=== PATIENT | female | born 1950 | race African-American/Black ===

== ENCOUNTER 2020-10-10 05:39 | Inpatient (IN) ==
[2020-10-06 12:56] LABS: Basophils % 0.5 % (0.0-0.8); Hematocrit 34.5 VOL% (35.7-47.0); Hemoglobin 11.4 GM/DL (12.0-16.0); Immature Granulocytes % 0.2 %; Immature Granulocytes Absolute 0.01 #; Lymphocytes # 1.8 10*3/uL (1.4-4.0); Lymphocytes % 43.1 % (21.3-54.2); Mean Corpuscular Volume 93.8 FL (87-102); Mean Platelet Volume 10.1 FL (9.6-12.0); Monocytes % 9.7 % (1.7-12.7); Neutrophils % 45.5 % (38.7-73.9); Platelet Count 180 T/CUMM (130-400); Red Blood Count 3.68 MC/CUMM (3.8-5.5); Red Cell Distribution Width 12.7 % (9.3-17.3); White Blood Count 4.1 T/CUMM (4-12)
[2020-10-06 13:14] LABS: Calcium 9.6 MG/DL (8.5-10.1)
[2020-10-10] MEDS ORDERED: ERTAPENEM 1,000 MG in SODIUM CHLORIDE 0.9% 100 ML IV ONE (06:00)
[2020-10-10] MEDS ORDERED: ALVIMOPAN 12 MG CAPSULE PO ONE (06:00)
[2020-10-10] MEDS ORDERED: INDOCYANINE GREEN 25 MG VIAL IV ONE (06:26)
[2020-10-10] MEDS ORDERED: TISSUE ADHESIVE 1 EACH APPLICATOR TOP ONE (06:26)
[2020-10-10] MEDS ORDERED: GABAPENTIN 400 MG CAPSULE PO ONE (06:35)
[2020-10-10] MEDS ORDERED: FAMOTIDINE 20 MG TABLET PO ONE (06:35)
[2020-10-10] MEDS ORDERED: ACETAMINOPHEN 500 MG TABLET PO ONE (06:35)
[2020-10-10] MEDS ORDERED: MIDAZOLAM 2 MG/2 ML VIAL ONE (06:37)
[2020-10-10] MEDS ORDERED: SUFentanil 50 MCG/ML AMP ONE (06:37)
[2020-10-10] MEDS ORDERED: ROPIVACAINE 0.5% 30 ML VIAL ONE (06:38)
[2020-10-10] MEDS ORDERED: DEXAMETHASONE 4 MG/1 ML VIAL ONE (06:38)
[2020-10-10] MEDS ORDERED: ROCURONIUM 50 MG/5 ML VIAL IV ONE ×2 (06:46→08:30)
[2020-10-10] MEDS ORDERED: propofoL 200 MG/20 ML VIAL IV ONE (06:46)
[2020-10-10] MEDS ORDERED: SEVOFLURANE 1 UNIT/15 MINUTE INH ONE ×3 (06:46→09:08)
[2020-10-10] MEDS ORDERED: LIDOCAINE 2% 5 ML VIAL ONE (06:46)
[2020-10-10] MEDS ORDERED: LACTATED RINGERS 1,000 ML IV ONE (06:46)
[2020-10-10] MEDS ORDERED: LACTATED RINGERS 1,000 ML IV SCH (07:00)
[2020-10-10] MEDS ORDERED: GLYCOPYRROLATE 0.4 MG/2 ML VIAL ONE ×2 (08:08→09:01)
[2020-10-10] MEDS ORDERED: NEOSTIGMINE 10 MG/10 ML VIAL ONE (09:01)
[2020-10-10] MEDS: LACTATED RINGERS 1,000 ML IV SCH ×2 (09:24→19:28)
[2020-10-10] MEDS ORDERED: METOPROLOL TARTRATE 25 MG TABLET PO SCH (09:31)
[2020-10-10] MEDS ORDERED: ONDANSETRON 4 MG/2 ML VIAL IV PRN ×2 (09:31→09:33)
[2020-10-10] MEDS ORDERED: MEPERIDINE 25 MG/1 ML VIAL IV PRN (09:33)
[2020-10-10] MEDS ORDERED: diphenhydrAMINE 50 MG/1 ML VIAL IV PRN (09:33)
[2020-10-10] MEDS ORDERED: PROMETHAZINE INJ 25 MG in SODIUM CHLORIDE 0.9% 50 ML IV PRN (09:33)
[2020-10-10] MEDS ORDERED: HYDROmorphone 2 MG/1 ML VIAL IV PRN (09:33)
[2020-10-10] MEDS: HYDROmorphone 2 MG/1 ML VIAL IV PRN ×4 (10:00→10:16)
[2020-10-10] MEDS: KETOROLAC 15 MG/1 ML VIAL IV SCH ×2 (10:16→15:54)
[2020-10-10 10:23] LABS: Basophils % 0.2 % (0.0-0.8); Eosinophils % 0.2 % (0.00-10.9); Hematocrit 35.1 VOL% (35.7-47.0); Hemoglobin 11.6 GM/DL (12.0-16.0); Immature Granulocytes % 0.3 %; Immature Granulocytes Absolute 0.04 #; Lymphocytes # 3.6 10*3/uL (1.4-4.0); Lymphocytes % 27.4 % (21.3-54.2); Mean Corpuscular Volume 94.1 FL (87-102); Mean Platelet Volume 9.7 FL (9.6-12.0); Monocytes % 3.5 % (1.7-12.7); Neutrophils % 68.4 % (38.7-73.9); Platelet Count 201 T/CUMM (130-400); Red Blood Count 3.73 MC/CUMM (3.8-5.5); Red Cell Distribution Width 12.8 % (9.3-17.3); White Blood Count 13.2 T/CUMM (4-12)
[2020-10-10 10:48] LABS: Calcium 8.7 MG/DL (8.5-10.1); Osmolality,Calculated 285.3 MOS/KG (273-304); Potassium 2.9 MMOL/L (3.5-5.1)
[2020-10-10] MEDS ORDERED: POTASSIUM CHLORIDE 20 MEQ TABLET PO PRN (14:30)
[2020-10-10] MEDS ORDERED: POTASSIUM CHLORIDE 20 MEQ TABLET PO ONE (14:31)
[2020-10-10] MEDS ORDERED: GLUCAGON 1 MG VIAL IM PRN (14:34)
[2020-10-10] MEDS ORDERED: DEXTROSE 50% 25 GM/50 ML VIAL IV PRN (14:34)
[2020-10-10] MEDS ORDERED: INSULIN REGULAR 100 UNIT/ML SUBCUT SCH (16:30)
[2020-10-10] MEDS ORDERED: NALOXONE 0.4 MG/ML VIAL ONE ×2 (18:04→18:08)
[2020-10-10] MEDS ORDERED: NOREPINEPHRINE 8 MG in SODIUM CHLORIDE 0.9% 242 ML IV PRN (18:11)
[2020-10-10] MEDS ORDERED: ACETAMINOPHEN 325 MG TABLET PO PRN (18:11)
[2020-10-10] MEDS ORDERED: ALBUTEROL 2.5 MG/3 ML NEB RESP TX PRN (18:11)
[2020-10-10] MEDS ORDERED: SUCCINYLCHOLINE 200 MG/10 ML VIAL ONE (18:11)
[2020-10-10] MEDS ORDERED: ETOMIDATE 20 MG/10 ML VIAL IV ONE ×2 (18:12→18:23)
[2020-10-10] MEDS ORDERED: SUCCINYLCHOLINE 200 MG/10 ML VIAL IV ONE (18:14)
[2020-10-10] MEDS ORDERED: MAGNESIUM SULF RIDER 2 GM/50 ML PREMIX IV PRN (18:24)
[2020-10-10] MEDS ORDERED: POTASSIUM CHLORIDE RIDER 10 MEQ/100 ML PREMIX IV PRN (18:24)
[2020-10-10] MEDS ORDERED: MAGNESIUM SULF RIDER 4 GM/100 ML PREMIX IV PRN (18:24)
[2020-10-10] MEDS ORDERED: SODIUM CHLORIDE 0.9% 1,000 ML IV SCH (18:30)
[2020-10-10] MEDS ORDERED: PANTOPRAZOLE 40 MG VIAL IV SCH (18:30)
[2020-10-10 18:36] LABS: Hematocrit 35.7 VOL% (35.7-47.0); Hemoglobin 11.7 GM/DL (12.0-16.0); Immature Granulocytes % 0.4 %; Immature Granulocytes Absolute 0.04 #; Lymphocytes # 0.4 10*3/uL (1.4-4.0); Lymphocytes % 4.7 % (21.3-54.2); Mean Corpuscular HGB Conc 32.8 GM/DL (32-36); Mean Corpuscular Volume 94.2 FL (87-102); Mean Platelet Volume 9.7 FL (9.6-12.0); Monocytes % 7.4 % (1.7-12.7); Neutrophils % 87.5 % (38.7-73.9); Platelet Count 178 T/CUMM (130-400); Red Blood Count 3.79 MC/CUMM (3.8-5.5); Red Cell Distribution Width 12.5 % (9.3-17.3); White Blood Count 9.4 T/CUMM (4-12)
[2020-10-10 18:49] LABS: Partial Thromboplastin Time 21.6 SECS (23.9-33.8)
[2020-10-10 19:01] VITALS: BP 164/86
[2020-10-10] MEDS ORDERED: NALOXONE 0.4 MG/ML VIAL IV ONE (19:05)
[2020-10-10 19:06] LABS: Alanine Aminotransferase 34 U/L (13-56); Albumin 3.5 G/DL (3.4-5.0); Alkaline Phosphatase 67 U/L (45-117); Aspartate Amino Transferase 24 U/L (0-37); Band Neutrophils 1 % (0-10); Bilirubin,Total < 0.39 MG/DL (0.2-1.0); Blood Urea Nitrogen 15 MG/DL (7-18); Carbon Dioxide 23 MMOL/L (21-32); Estimated Glom Filtration Rate 62 ML/MIN; Glucose 230 MG/DL (74-106); Lymphocytes 3 % (20-55); Osmolality,Calculated 284.5 MOS/KG (273-304); Platelet Estimate Adequate; Segmented Neutrophils 89 % (50-85); Sodium 139 MMOL/L (136-145); Total Cells Counted 100; Total Protein 6.9 G/DL (6.4-8.2)
[2020-10-10 19:43] LABS: ABG Base Excess -1.3 MMOL/L (-2.5-2.5); ABG HCO3 23.4 MMOL/L (20-26); ABG PCO2 33.9 MM HG (35-48); ABG PH 7.428 (7.35-7.45); ABG TCO2 19.8 MMOL/L (23-27)
[2020-10-10 20:05] LABS: Bilirubin,Urine Negative (Negative); Blood, Urine Small mg/dL (Negative); Glucose,Urine (UA) >=500 mg/dL (Negative); Ketones,Urine Negative (Negative); Mucus,Urine Occasional /LPF (Occasional); Nitrite,Urine Negative (Negative); Protein,Urine Negative; RBC,Urine 9 /HPF (0-4); Squamous Epithelial Cell,Urine Occasional /HPF (0-10); Urine Appearance CLEAR (Clear); Urine Color Straw (Yellow); Urine Specific Gravity 1.026 (1.001-1.035); Urine Urobilinogen < 2.0 EU/DL (0.2-1.0)
[2020-10-10] MEDS ORDERED: ALVIMOPAN 12 MG CAPSULE PO SCH (21:00)
[2020-10-11] MEDS ORDERED: INSULIN REGULAR 100 UNIT/ML SUBCUT SCH
[2020-10-11] MEDS ORDERED: ENOXAPARIN 40 MG/0.4 ML SYRINGE SUBCUT SCH (05:00)
[2020-10-11] MEDS ORDERED: FERROUS SULFATE 325 MG TABLET PO SCH (09:00)
[2020-10-11] MEDS ORDERED: OMEGA 3 ACID ETHYL ESTERS 1 GM CAPSULE PO SCH (09:00)
== END 2020-10-10 20:53 | disposition hospice, home (50) | DRG 329 ==
LOC: N.OR 05:39 → N.SDSINP 05:40 → N.3E 09:20 → N.ICU 18:16
PROVIDERS: ADMIT Surgery; ATTEND Surgery